=== PATIENT | male | born 1955 ===

== ENCOUNTER 2016-10-01 11:42 | Emergency (ER) | payer OTHER ==
[2016-10-01 11:52] VITALS: PULSE 72; TEMP 98; O2SAT 97
[2016-10-01 11:53] VITALS: BMI 22.8
[2016-10-01 12:11] VITALS: RESP 18
[2016-10-01] MEDS ORDERED: Ciprofloxacin 0.3% OPTH SOLN OD STA (12:35)
--- NOTE | 2016-10-01 12:38 | ED PDOC ---
HPI: Eye Injury/Pain Time Seen by Provider: 10/01/16 12:35 Chief Complaint (Nursing): Eye Problem Chief Complaint (Provider): LEFT EYE PAIN History Per: Patient (60 Y/O MALE HERE S/P EYE INJURY 6 DAYS AGO AT WORK. STATES HE FELT OBJECT IN EYE BUT THOUGHT IT WAS DUST THAT WASHED WITH BLINKING . HAD PERSIST SYMPTOMS/REDNESS NOT RESOLVED WITH VISINE. SEEN BY DOCTOR OFFICE /URGENT CARE TODAY AND HAD METAL PIECE REMOVED SUCCESSFULLY. SENT TO ED FOR PERSISTENT RUST RINGS.) Past Medical History Reviewed: Historical Data, Nursing Documentation, Vital Signs Vital Signs: Last Vital Signs Temp 98 F 10/01/16 12:09 Pulse 72 10/01/16 12:09 Resp 18 10/01/16 12:09 BP 163/88 H 10/01/16 12:09 Pulse Ox 97 10/01/16 12:09 - Medical History PMH: HTN, Hyperlipidemia - Surgical History Surgical History: No Surg Hx - Family History Family History: States: No Known Family Hx - Home Medications Home Medications: Ambulatory Orders Medication Instructions Recorded Erythromycin 0.5% [Ilytocin] 3.5 gm RIGHTEYE BID #1 tube 10/01/16 Ibuprofen [Motrin] 600 mg PO Q8 PRN #21 tab 10/01/16 - Allergies Allergies/Adverse Reactions: Allergies Allergy/AdvReac Type Severity Reaction Status Date / Time No Known Allergies Allergy Verified 10/01/16 12:08 Review of Systems ROS Statement: Except As Marked, All Systems Reviewed And Found Negative Eyes: Positive for: Pain Physical Exam - Reviewed Nursing Documentation Reviewed: Yes Vital Signs Reviewed: Yes - Physical Exam Appears: Positive for: Well, Non-toxic, No Acute Distress Head Exam: Positive for: ATRAUMATIC, NORMAL INSPECTION, NORMOCEPHALIC Skin: Positive for: Normal Color, Warm, DRY Eye Exam: Positive for: EOMI, PERRL, Other (SMALL PUNTATE REGION OF RUST NOTED RIGHT LOWER PORTION OF EYE BELOW PUPIL. PERRL. MODERATE CONJUNCTIVAL INJECTION.) . Negative for: Normal appearance ENT: Positive for: Normal ENT Inspection Neck: Positive for: Normal, Painless ROM Cardiovascular/Chest: Positive for: Regular Rate, Rhythm Respiratory: Positive for: CNT, Normal Breath Sounds Gastrointestinal/Abdominal: Positive for: Normal Exam, Bowel Sounds, Soft Back: Positive for: Normal Inspection Extremity: Positive for: Normal ROM Neurologic/Psych: Positive for: Alert, Oriented - ECG O2 Sat by Pulse Oximetry: 97 - Progress ED Course And Treament: MOTRIN 600 MG X 1 DOSE CILOXIN 1 DROP IN ED. D/W DR. ROMAN. WILL SEE PATIENT 9AM TOMORROW. Disposition - Clinical Impression Clinical Impression: Eye injury - Patient ED Disposition Is Patient to be Admitted: No - Disposition Referrals: Aurelio Roman MD [Staff Provider] - Disposition: Routine/Home Disposition Time: 12:38 Condition: FAIR Additional Instructions: SIGA CON SPECIALISTA MANANA A LAS 9AM Prescriptions: Erythromycin 0.5% [Ilytocin] 3.5 gm RIGHTEYE BID #1 tube Ibuprofen [Motrin] 600 mg PO Q8 PRN #21 tab PRN Reason: Pain, Moderate (4-7) Instructions: Eye Foreign Body (ED) Forms: [facility] ED School/Work Excuse Print Language: MACEDONIAN
[2016-10-01] MEDS ORDERED: Erythromycin 0.5% Ophth Oint 1 APPLIC/3.5 G OD ONE (12:45)
[2016-10-01] MEDS ORDERED: Erythromycin 0.5% Ophth Oint 1 APPLIC/G OD ONE (13:00)
[2016-10-01] MEDS ORDERED: TDAP Vaccine 0.5 mL Syr IM ONE (13:31)
[2016-10-01 14:01] VITALS: BP 150/89
== END 2016-10-01 13:59 | disposition home or self-care (01) ==
LOC: EDSEX 11:42 → H.ER 11:42
DX: S05.90XA Unspecified injury of unspecified eye and orbit, initial encounter (principal); W22.8XXA Striking against or struck by other objects, initial encounter; Y99.0 Civilian activity done for income or pay